=== PATIENT | female | born 1935 | race Caucasian/White ===

== ENCOUNTER 2017-08-21 06:56 | Emergency (ER) | payer MEDICARE, OTHER ==
[2017-08-21] MEDS ORDERED: LABETALOL HCL 5 MG/ML 20ML VIAL IV STA (07:31)
[2017-08-21] MEDS ORDERED: LORAZEPAM INJ 2 MG/ML VIAL IV ONE ×2 (07:45→08:00)
[2017-08-21] MEDS ORDERED: HYDRALAZINE HCL 20 MG/ML VIAL IV ONE (07:45)
--- NOTE | 2017-08-21 08:11 | Diagnostic Imaging Report ---
PROCEDURE: CHEST SINGLE (PORTABLE) COMPARISON: None. INDICATIONS: SHORTNESS OF BREATH, " STRESS" FINDINGS: Lines: Left sided pacer device with two leads overlying the right atrium and a single lead overlying the right ventricle. LUNGS: No evidence of pneumonia or pulmonary edema. PLEURA: No effusions or pneumothorax. HEART \\T\\ MEDIASTINUM: No enlargement of the cardiomediastinal silhouette. Atherosclerotic calcifications of the aortic arch. BONES \\T\\ SOFT TISSUES: No acute findings. Scattered degenerative changes. CONCLUSION: No acute thoracic abnormality. Dictated by: SINGH CELIS M.D. on 08/21/2017 at 8:15 Electronically approved by: SINGH CELIS M.D. on 08/21/2017 at 8:15
[2017-08-21 08:17] LABS: BASOPHILS % 0.7 % (0.0-1.0); EOSINOPHILS # (AUTO) 0.2 (0.0-0.4); EOSINOPHILS % 2.8 % (0.0-6.0); HEMATOCRIT 34.6 % (34.2-44.1); HEMOGLOBIN 11.4 g/dL (12.0-16.0); LYMPHOCYTES # (AUTO) 1.6 (1.0-3.2); LYMPHOCYTES % 29.2 % (18.0-39.1); MEAN CORPUSCULAR HEMOGLOBIN 28.6 pg (28-32); MEAN CORPUSCULAR HGB CONC 32.9 g/dL (31-35); MEAN CORPUSCULAR VOLUME 86.7 fL (81-99); MONOCYTES # (AUTO) 0.5 (0.2-0.8); MONOCYTES % 8.5 % (4.4-11.3); NEUTROPHILS # (AUTO) 3.2 (2.1-6.9); NEUTROPHILS % 58.6 % (38.7-80.0); PLATELET COUNT 151 x10e3/uL (140-360); RED BLOOD COUNT 3.99 x10e6/uL (3.6-5.1); RED CELL DISTRIBUTION WIDTH 13.1 % (11.7-14.4)
[2017-08-21 08:22] LABS: BILIRUBIN,URINE NEGATIVE (NEGATIVE); CLARITY,URINE SL CLOUDY (CLEAR); COLOR,URINE YELLOW (YELLOW); KETONES,URINE NEGATIVE (NEGATIVE); LEUKOCYTE ESTERASE ,URINE 1+ (NEGATIVE); NITRITE,URINE NEGATIVE (NEGATIVE); PROTEIN,URINE DIPSTICK NEGATIVE (NEGATIVE); URINE UROBILINOGEN 0.2 mg/dL (0.2 - 1)
[2017-08-21 08:33] LABS: BACTERIA,URINE MODERATE /HPF; EPITHELIAL CELLS,URINE FEW /LPF
[2017-08-21 08:34] LABS: ALANINE AMINOTRANSFERASE 25 IU/L (0-55); ALBUMIN/GLOBULIN RATIO 1.4 (0.8-2.0); ALKALINE PHOSPHATASE 140 IU/L (40-150); BLOOD UREA NITROGEN 17 mg/dL (7-26); BUN/CREATININE RATIO 20 (6-25); CALCIUM 9.5 mg/dL (8.4-10.2); CARBON DIOXIDE 23 mmol/L (22-29); CHLORIDE 107 mmol/L (98-107); CREATININE, SERUM 0.83 mg/dL (0.57-1.11); EST GLOMERULAR FILTRATION RATE > 60 ML/MIN (60-); GLUCOSE 109 mg/dL (74-118); SODIUM 143 mmol/L (136-145)
[2017-08-21] MEDS ORDERED: CEFTRIAXONE SOD 1 GM VIAL IV ONE (09:45)
[2017-08-21 15:02] VITALS: BP 110/52
== END 2017-08-21 14:52 | disposition home or self-care (01) ==
LOC: ER 06:56
DX: R06.02 Shortness of breath (principal); F41.9 Anxiety disorder, unspecified
CPT/HCPCS: 36415; 71045; 80053; 81001; 83880; 84484; 85025; 87086; 87186; 93005; 99284; J0696; J2060

== ENCOUNTER 2017-08-25 13:17 | Emergency (ER) | payer MEDICARE, OTHER ==
[~2017-08-25] VITALS: Ht 152.4 cm; Wt 45.4 kg
[2017-08-25] MEDS ORDERED: ACETAMINOPHEN 325 MG TAB PO ONE (15:15)
--- NOTE | 2017-08-25 16:08 | Diagnostic Imaging Report ---
EXAMINATION: Head and cervical spine CT without contrast. HISTORY: Status post fall, head trauma, pain COMPARISON: None. TECHNIQUE: Multidetector axial images were obtained without contrast from the foramen magnum to the vertex and through the cervical spine. The images were reconstructed using brain and bone algorithms. Thin section brain images were reformatted into coronal and sagittal planes. HEAD CT FINDINGS: Skull: No lytic or blastic lesions. No fractures. Parenchyma: Few scattered and mildly confluent bilateral parietal white matter hypodensities, most likely nonspecific chronic microvascular ischemic changes. No mass, hemorrhage or CT evidence of acute vascular insult. Brain volume: Normal for age. Ventricles: No hydrocephalus or displacement. Arteries: No density suggestive of thrombus. Dural sinuses: No abnormal density. Extra-axial spaces: No abnormal density. Foramen magnum: No mass, Chiari malformation, or basilar invagination. Sella: No obvious mass. Paranasal/mastoid sinuses: Imaged portions unremarkable. CERVICAL SPINE CT FINDINGS: Alignment:Mild S shaped scoliosis. Normal cervical lordosis. Age indeterminate, likely chronic and degenerative Grade 1 anterolisthesis at C4-C5, and grade 2 at C7-T1. Soft tissues: Normal. Vertebrae: Normal height and density. No acute fracture, infection or neoplasm. Degenerative changes: C1-C2: Normal C2-C3: Facet arthrosis minimally on the left without stenoses C3-C4: Disc osteophyte, uncovertebral and facet arthrosis. Moderate left foraminal stenosis. C4-C5: Symmetric disc bulge and facet arthrosis without canal or foraminal stenoses C5-C6: Disc osteophyte, uncovertebral and facet arthrosis. Moderate right and mild left foraminal stenosis. C6-C7: Disc osteophyte, uncovertebral and facet arthrosis. Moderate right and mild left foraminal stenoses. C7-T1: Facet arthrosis without stenoses IMPRESSION: Head CT: 1. No acute postraumatic intracranial hemorrhage. 2. Mild chronic microvascular ischemic changes. Cervical spine CT: 1. No acute fractures or dislocations. 2. Chronic degenerative changes as described. Note: Acute post traumatic spinal cord, vascular or ligamentous injury cannot adequately be assessed with CT. Signed by: Dr. Lizett Santo M.D. on 08/25/2017 4:04 PM
[2017-08-25 16:26] VITALS: BP 148/96
== END 2017-08-25 17:33 | disposition home or self-care (01) ==
LOC: ER 13:17
DX: S00.83XA Contusion of other part of head, initial encounter (principal); M54.2 Cervicalgia; S16.1XXA Strain of muscle, fascia and tendon at neck level, initial encounter; W01.0XXA Fall on same level from slipping, tripping and stumbling without subsequent striking against object, initial encounter; Y92.008 Other place in unspecified non-institutional (private) residence as the place of occurrence of the external cause; I10 Essential (primary) hypertension; I50.9 Heart failure, unspecified
CPT/HCPCS: 70450; 72125; 99284

== ENCOUNTER 2024-07-20 10:04 | Emergency (ER) | payer MEDICARE ==
[~2024-07-20] VITALS: Ht 152.4 cm; Wt 39.5 kg
[2024-07-20 10:24] VITALS: TEMP 98.3
[2024-07-20 12:00] VITALS: PULSE 55; RESP 19; O2SAT 100
== END 2024-07-20 13:00 | disposition home or self-care (01) ==
LOC: ER 10:15
DX: M25.552 Pain in left hip (principal); M16.12 Unilateral primary osteoarthritis, left hip; M25.452 Effusion, left hip; W18.30XA Fall on same level, unspecified, initial encounter; Y92.89 Other specified places as the place of occurrence of the external cause; F03.90 Unspecified dementia, unspecified severity, without behavioral disturbance, psychotic disturbance, mood disturbance, and anxiety; I10 Essential (primary) hypertension; I50.9 Heart failure, unspecified; E78.5 Hyperlipidemia, unspecified; K21.9 Gastro-esophageal reflux disease without esophagitis; F41.9 Anxiety disorder, unspecified; F32.A Depression, unspecified; Z95.810 Presence of automatic (implantable) cardiac defibrillator
CPT/HCPCS: 70450; 72125; 72192; 93005; 94760; 99284